=== PATIENT | female | born 1955 | race Caucasian/White ===

== ENCOUNTER 2018-03-07 02:19 | Emergency (ER) | payer OTHER ==
[~2018-03-07] VITALS: Ht 167.6 cm; Wt 79.4 kg
[2018-03-07 03:01] LABS: HEMATOCRIT 43.5 % (37.0-47.0); HEMOGLOBIN 14.7 gm/dL (12.0-15.0); MCH 29.5 pg (26.0-34.0); MCHC 33.9 g/dL (28.0-37.0); MPV 9.1 fl. (7.2-11.1); NUCLEATED RBCS 0 /100WBC; PLATELET COUNT* 276 thou/uL (150-400); RBC 4.99 mil/uL (4.20-5.00); RDW-CV 14.1 % (10.5-14.5)
[2018-03-07 03:05] LABS: ANION GAP 15 mmol/L (7-16); BUN 6 mg/dL (7-18); CALCIUM 7.8 mg/dL (8.5-10.1); CHLORIDE 101 mmol/L (98-107); CO2 26 mmol/L (21-32); CREATININE 0.7 mg/dL (0.6-1.3); GLUCOSE 161 mg/dL (70-99); INR 1.1; PROTIME 10.5 Seconds (9.20-11.50); SODIUM 142 mmol/L (136-145)
[2018-03-07 03:08] LABS: POTASSIUM 2.6 mmol/L (3.5-5.1)
[2018-03-07 03:16] LABS: ALBUMIN 3.5 g/dL (3.4-5.0); ALKALINE PHOSPHATASE 96 U/L (46-116); LIPASE 230 U/L (73-393); NT-PRO BRAIN NAT PEPTIDE 266 pg/mL (<300); SGOT 35 U/L (15-37); SGPT 27 U/L (30-65); TOTAL BILIRUBIN 0.3 mg/dL (<0.1-1.0); TOTAL PROTEIN 7.7 g/dL (6.4-8.2); TROPONIN-I LEVEL <0.06 ng/mL (<0.06)
[2018-03-07 04:14] LABS: ABSOLUTE LYMPHOCYTES 4.2 thou/uL (0.8-5.3); ABSOLUTE MONOCYTES 0.8 thou/uL (0.0-1.2)
[2018-03-07 04:15] LABS: PLATELET ESTIMATE ADEQUATE
[2018-03-07 04:21] LABS: URINE BILIRUBIN NEGATIVE (Negative); URINE BLOOD TRACE (Negative); URINE CLARITY CLEAR; URINE COLOR YELLOW; URINE GLUCOSE-RANDOM NEGATIVE (Negative); URINE KETONES NEGATIVE (Negative); URINE LEUKOCYTES-REFLEX NEGATIVE (Negative); URINE NITRITE-REFLEX NEGATIVE (Negative); URINE PROTEIN 1+ (Negative); URINE UROBILINOGEN 0.2 E.U./dl (0.2-1.0)
[2018-03-07 04:27] LABS: AMP/METHAMP Negative (Negative); BARBITURATES Negative (Negative); BENZODIAZEPINES Negative (Negative); COCAINE Negative (Negative); METHADONE Negative (Negative); OPIATES Negative (Negative); PCP Negative (Negative); THC Negative (Negative)
[2018-03-07] MEDS ORDERED: DEPAKOTE 250MG250 M1 (04:37)
[2018-03-07] MEDS ORDERED: HYPERTENSION MED (04:37)
[2018-03-07] MEDS ORDERED: DIOVAN320 MG PO ×2 (04:58→04:59)
[2018-03-07] MEDS ORDERED: DEPAKOTE ER500 MG PO (05:01)
[2018-03-07 05:40] VITALS: BP 170/95
--- NOTE | 2018-03-07 13:44 | EKG ---
[place] [address] ELECTROCARDIOGRAM REPORT Name: MATT MOONEY [id number] Admission: 03/07/18 Attend Phys: Discharge: 03/07/18 Date of : 59 Report #: [id number] THIS REPORT FOR: //name// [facility] ED Test Date: 2018-03-07 Test Time: 02:42:18 Pat Name: MATT MOONEY Department: Room: Gender: F [employer]: JAVI Chan : 1955 Requested By: Jason Richey Order Number: [id number] MD: Eduardo Peña Measurements Intervals [place] Rate: 106 P: 49 [place]: 120 QRS: 2 QRSD: 96 T: 32 QT: 373 QTc: 496 Interpretive Statements Sinus tachycardia Probable left atrial enlargement Borderline prolonged QT interval nonspecific st changes No previous ECG available for comparison Electronically Signed On 03-07-2018 13:44:21 CDT by Eduardo Peña [email or web address] <ELECTRONICALLY SIGNED> By: Eduardo Peña MD, MERGED WITH [facility] 03/07/18 [id number] [id number] Eduardo Peña MD, FACC /EPI
== END 2018-03-07 05:43 | disposition short-term general hospital (02) ==
LOC: M.ERS 02:19
PROVIDERS: Emergency Medicine
DX: S02.82XA Fracture of other specified skull and facial bones, left side, initial encounter for closed fracture (principal); S06.6X9A Traumatic subarachnoid hemorrhage with loss of consciousness of unspecified duration, initial encounter; S30.1XXA Contusion of abdominal wall, initial encounter; I10 Essential (primary) hypertension; Z88.0 Allergy status to penicillin; Z88.1 Allergy status to other antibiotic agents; W01.0XXA Fall on same level from slipping, tripping and stumbling without subsequent striking against object, initial encounter; Y93.89 Activity, other specified; Y92.89 Other specified places as the place of occurrence of the external cause; Y99.8 Other external cause status